=== PATIENT | female | born 1990 | race Two or more races ===

== ENCOUNTER 2016-08-21 17:01 | Emergency (ER) | payer OTHER, BC ==
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
[2016-08-21 18:07] LABS: BASOPHIL % 0.3 %; EOSINOPHIL # 0.2 K/uL (0.0-0.5); EOSINOPHIL % 1.6 %; HEMOGLOBIN 13.3 g/dL (11.0-15.0); IMMATURE GRANULOCYTE # 0.1 K/uL (0.0-0.3); IMMATURE GRANULOCYTE % 1.1 %; LYMPHOCYTE # 2.9 K/uL (0.8-4.0); LYMPHOCYTE % 25.1 %; MCH 28.9 pg (27.0-34.0); MCHC 33.3 gm/dL (32.0-36.5); MONOCYTE # 0.6 K/uL (0.0-1.0); MONOCYTE % 5.4 %; MPV 10.1 fl (9.4-12.4); NEUTROPHIL # (ANC) 7.7 K/uL (1.8-7.8); NEUTROPHIL % 66.5 %; NRBC % 0 /100WBC (0-0.00); PLATELET COUNT 275 K/uL (150-450); RDW-CV 14.4 % (11.9-14.6); WBC 11.5 K/uL (4.0-11.0)
[2016-08-21 18:13] LABS: PROTIME 10.2 SECONDS (9.6-11.1); PTT 26 SECONDS (25-32)
[2016-08-21 18:24] LABS: ALBUMIN 3.6 gm/dL (3.5-5.0); ALK PHOS 83 IU/L (33-138); ALT 38 IU/L (12-78); ANION GAP 10.9 (10.0-19.0); AST 24 IU/L (10-40); BLOOD UREA NITROGEN 10 mg/dL (6-24); CALCIUM 8.4 mg/dL (8.5-10.5); CHLORIDE 108 mMol/L (96-110); CO2 29 mMol/L (22-32); CREATININE 0.8 mg/dL (0.5-1.1); ESTIMATED GFR (MDRD EQUATION) > 60; POTASSIUM 3.9 mMol/L (3.7-5.1); SODIUM 144 mMol/L (135-145); TOTAL BILIRUBIN 0.5 mg/dL (0.0-1.5)
== END 2016-08-21 20:20 | disposition disaster alternative care site (69) ==
LOC: GACC 17:01
PROVIDERS: Family Medicine
DX: M54.2 Cervicalgia (principal); F17.210 Nicotine dependence, cigarettes, uncomplicated; V49.9XXA Car occupant (driver) (passenger) injured in unspecified traffic accident, initial encounter
CPT/HCPCS: G0480; J1885; Q9967

== ENCOUNTER → 2016-08-21 | Outpatient (CLI) | payer BC, OTHER ==
[~2016-08-21] MED LIST: DESYREL50 MG PO; LATUDA20 MG PO; LEXAPRO20 MG PO
== END ==
LOC: GAMB 16:35
DX: S19.9XXA Unspecified injury of neck, initial encounter (principal); V49.69XA Unspecified car occupant injured in collision with other motor vehicles in traffic accident, initial encounter
CPT/HCPCS: A0425; A0427

== ENCOUNTER 2016-08-26 19:54 | Emergency (ER) | payer BC, OTHER ==
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
== END 2016-08-26 20:47 | disposition disaster alternative care site (69) ==
LOC: GMED 19:54
DX: R51 Headache (principal); M54.2 Cervicalgia; F17.210 Nicotine dependence, cigarettes, uncomplicated